=== PATIENT | female | born 1965 ===

== ENCOUNTER → 2018-06-19 10:17 | Outpatient (CLI) | payer BC, SELFPAY | PROVIDERS: PCP Physician Assistant | DX: Z78.0 Asymptomatic menopausal state (principal) | CPT/HCPCS: 36415; 83001 ==

== ENCOUNTER → 2018-12-19 12:00 | Outpatient (CLI) | payer BC, SELFPAY ==
--- NOTE | 2018-12-19 12:01 | DI.MG.S_ITS ---
BILATERAL DIGITAL SCREENING MAMMOGRAM 3D/2D WITH CAD: 12/19/2018 CLINICAL: Routine screening. Family history of breast cancer. Comparison is made to exams dated: 01/10/2017 mammogram, 02/05/2013 mammogram, and 09/06/2011 mammogram - [facility]. The tissue of both breasts is extremely dense, which lowers the sensitivity of mammography. Current study was also evaluated with a Computer Aided Detection (CAD) system. There are benign calcifications in both breasts. There also is a benign biopsy clip in the right breast. No significant masses, calcifications, or other findings are seen in either breast. There has been no significant interval change. IMPRESSION: There is no mammographic evidence of malignancy. A 1 year screening mammogram is recommended. This exam was interpreted at Station ID: [id number]. NOTE: For mammograms, a report in lay terms will be sent to the patient. Approximately 15% of breast malignancies will not be visualized mammographically. In the management of a palpable breast mass, a negative mammogram must not discourage biopsy of a clinically suspicious lesion. Electronically Signed By: Jeff hillman/eleonora:12/21/2018 11:57:11 letter sent: Normal Exam ACR BI-RADS Category 2: Benign Finding(s) 3342F
== END ==
PROVIDERS: PCP Physician Assistant
DX: Z12.31 Encounter for screening mammogram for malignant neoplasm of breast (principal); Z80.3 Family history of malignant neoplasm of breast
CPT/HCPCS: 77063; 77067

== ENCOUNTER → 2019-01-29 10:00 | Outpatient (CLI) | payer BC, SELFPAY ==
--- NOTE | 2019-01-29 10:03 | DI.CT.S_ITS ---
PROCEDURE: CT ABDOMEN PELVIS W CON INDICATIONS: Left upper quadrant pain TECHNIQUE: After the administration of oral and intravenous contrast, 5 mm thick sections acquired from the diaphragms to the symphysis. 5 mm thick coronal and sagittal reformats were performed. For radiation dose reduction, the following was used: automated exposure control, adjustment of mA and/or kV according to patient size. COMPARISON: [facility], CT, ABDOMEN/PELVIS WITH CONTRAST, 11/21/2017, 11:52. FINDINGS: Image quality: Excellent. ABDOMEN: Lung bases: No acute consolidation. Unchanged 3 mm nodule involving the anterior right lung base, presumably chronic granulomatous disease. Scattered scarring/atelectasis. Heart size is normal. Solid organs: Hepatic steatosis. Gallbladder negative. Biliary system is non-dilated. Pancreas enhances normally. Spleen is normal in size and enhancement. No adrenal nodules. Kidneys are normal in size and enhancement, without hydronephrosis. Peritoneum and bowel: Stomach, small bowel, and colon loops are normal in caliber and wall thickness. No free fluid or air. Large amount of disuse stool. Nodes and vessels: No retroperitoneal or mesenteric adenopathy. Aorta and inferior vena cava are normal in caliber. Miscellaneous: No ventral hernias. PELVIS: Genitourinary: Bladder wall thickness is normal. Miscellaneous: No inguinal hernias or adenopathy. Bones: No suspicious bony lesions. No vertebral body compression fractures. IMPRESSION: No specific visualized etiology of left upper quadrant pain. No acute process. Large amount of diffuse stool raising the possibility of constipation. Hepatic steatosis. Dictated by: Neville Larry M.D. on 01/29/2019 at 11:35 Approved by: Neville Larry M.D. on 01/29/2019 at 11:40
== END ==
PROVIDERS: PCP Physician Assistant; Visit Provider Physician Assistant
DX: R10.12 Left upper quadrant pain (principal); K76.0 Fatty (change of) liver, not elsewhere classified; R91.1 Solitary pulmonary nodule
CPT/HCPCS: 74177; Q9967

== ENCOUNTER → 2020-06-06 08:04 | Outpatient (CLI) | payer BC, SELFPAY ==
--- NOTE | 2020-06-06 | DI.RAD.S_ITS ---
PROCEDURE: XR CERVICAL SPINE 2V OR 3V INDICATIONS: Other cervical disc degeneration, unspecified cervical regio TECHNIQUE: 3 view(s) of the cervical spine were acquired. COMPARISON: None. FINDINGS: Bones: No fractures or dislocations to the T1 level. The lateral masses of C1 appear intact on the odontoid view. No suspicious bony lesions. There is mild degenerative disc disease at C5-6, and moderately severe such degeneration at C6-7. Facet osteoarthritis at C6-7 also appears moderately severe. Soft tissues: No prevertebral soft tissue swelling. IMPRESSION: No trauma found, no subluxation. Moderately severe degenerative disc disease and facet osteoarthritis at C6-7 to the good degree that spinal and foraminal stenosis likely is present at this level. Dictated by: Vaughn Oseguera M.D. on 06/06/2020 at 8:30 Approved by: Vaughn Oseguera M.D. on 06/06/2020 at 8:32
== END ==
PROVIDERS: PCP Internal Medicine; Referring Provider Internal Medicine; Visit Provider Internal Medicine
DX: M50.322 Other cervical disc degeneration at C5-C6 level (principal); M47.812 Spondylosis without myelopathy or radiculopathy, cervical region; R20.2 Paresthesia of skin; R20.0 Anesthesia of skin
CPT/HCPCS: 72040

== ENCOUNTER → 2020-06-23 13:06 | Outpatient (CLI) | payer BC, SELFPAY ==
[2020-06-23 15:00] LABS: TSH w/ Reflex to FT4 0.98 uIU/mL (0.47-4.68)
[2020-06-23 15:18] LABS: Vitamin B12 681 pg/mL (239-931)
== END ==
PROVIDERS: PCP Internal Medicine; Referring Provider Internal Medicine; Visit Provider Internal Medicine
DX: R20.2 Paresthesia of skin (principal)
CPT/HCPCS: 36415; 82607; 84443

== ENCOUNTER 2020-07-27 14:27 | Outpatient (CLI) | payer BC, SELFPAY | END 2020-07-28 07:34 | disposition home or self-care (01) | LOC: PHYS 14:28 | PROVIDERS: PCP Internal Medicine; Referring Provider Student in an Organized Health Care Education/Training Program; Visit Provider Student in an Organized Health Care Education/Training Program | DX: M50.10 Cervical disc disorder with radiculopathy, unspecified cervical region (principal) | CPT/HCPCS: 95886; 95911 ==

== ENCOUNTER → 2020-09-15 14:03 | Outpatient (CLI) | payer BC, SELFPAY ==
[2020-09-15 16:29] LABS: Bacteria Urine None Seen; RBC Urine None Seen (0-5/HPF)
[2020-09-15 17:10] LABS: Appearance Urine UA CLEAR; Bilirubin Urine UA NEGATIVE (NEGATIVE); Color Urine UA YELLOW; Glucose Urine UA NEGATIVE (Negative); Ketones Urine UA NEGATIVE (NEGATIVE); Leukocyte Esterase Urine UA 1+ (NEGATIVE); Nitrite Urine UA NEGATIVE (Negative); Occult Blood Urine UA NEGATIVE (Negative); Protein Urine UA NEGATIVE (Negative); Urobilinogen Urine UA 0.2 E.U./dL (0.2)
[2020-09-15 17:26] LABS: Culture Indicated Urine Specimen Cultured; WBC Urine 1-5/HPF (0-5/HPF); pH Urine UA 5.5 (4.5-8.0)
== END ==
PROVIDERS: PCP Internal Medicine; Referring Provider Obstetrics & Gynecology; Visit Provider Obstetrics & Gynecology
DX: R39.15 Urgency of urination (principal)
CPT/HCPCS: 81001; 87086

== ENCOUNTER → 2020-10-12 17:33 | Outpatient (CLI) | payer BC, SELFPAY ==
--- NOTE | 2020-10-12 | DI.RAD.S_ITS ---
PROCEDURE: XR KNEE RT 1TO2V COMPARISON: None. INDICATIONS: Acute Right Knee Pain FINDINGS: Two views of the right knee were performed. There is joint space narrowing of the lateral joint space with osteophytosis. No joint effusion is identified. A suprapatellar joint effusion is noted. IMPRESSION: 1. No fracture. 2. Degenerative changes with lateral joint space narrowing. 3. Suprapatellar joint effusion suggests internal derangement. Recommend MRI. Dictated by: Bowen Green M.D. on 10/13/2020 at 8:45 Approved by: Bowen Green M.D. on 10/13/2020 at 8:47
== END ==
PROVIDERS: PCP Internal Medicine; Referring Provider Internal Medicine; Visit Provider Internal Medicine
DX: M25.561 Pain in right knee (principal); M25.461 Effusion, right knee
CPT/HCPCS: 73560

== ENCOUNTER → 2020-12-12 17:28 | Outpatient (CLI) | payer BC, SELFPAY ==
--- NOTE | 2020-12-12 | DI.MG.S_ITS ---
BILATERAL DIGITAL SCREENING MAMMOGRAM 3D/2D WITH CAD: 12/12/2020 CLINICAL: Routine screening. Family history of breast cancer. Comparison is made to exams dated: 12/19/2018 mammogram, 01/10/2017 mammogram, and 02/05/2013 mammogram - [facility]. The tissue of both breasts is extremely dense, which lowers the sensitivity of mammography. Current study was also evaluated with a Computer Aided Detection (CAD) system. There are benign calcifications in both breasts. There also is a biopsy clip in the right breast. No significant masses, calcifications, or other findings are seen in either breast. There has been no significant interval change. IMPRESSION: BENIGN There is no mammographic evidence of malignancy. A 1 year screening mammogram is recommended. This exam was interpreted at Station ID: [id number]. NOTE: For mammograms, a report in lay terms will be sent to the patient. Approximately 15% of breast malignancies will not be visualized mammographically. In the management of a palpable breast mass, a negative mammogram must not discourage biopsy of a clinically suspicious lesion. Electronically Signed By: Brian montero/eleonora:12/13/2020 07:52:27 letter sent: Normal Exam ACR BI-RADS Category 2: Benign Finding(s) 3342F
== END ==
PROVIDERS: PCP Internal Medicine; Referring Provider Internal Medicine; Visit Provider Internal Medicine
DX: Z12.31 Encounter for screening mammogram for malignant neoplasm of breast (principal); Z80.3 Family history of malignant neoplasm of breast
CPT/HCPCS: 77063; 77067

== ENCOUNTER → 2021-02-05 10:41 | Outpatient (CLI) | payer BC, SELFPAY ==
[2021-02-05 11:31] LABS: COVID19 -Nasal RAPID Negative (Negative)
== END ==
PROVIDERS: PCP Internal Medicine; Visit Provider Obstetrics & Gynecology
DX: Z01.812 Encounter for preprocedural laboratory examination (principal); Z20.822 Contact with and (suspected) exposure to COVID-19
CPT/HCPCS: 87635

== ENCOUNTER 2021-02-06 06:25 | Inpatient (IN) | payer BC, SELFPAY ==
[2021-01-30 08:58] VITALS: BMI 23.6
[2021-02-06] VITALS (22 sets, daily range): BP systolic 86–130; BP diastolic 38–79; PULSE 57–85; RESP 8–18; TEMP 36.4–36.9; O2SAT 78–100; BMI 23.4
--- NOTE | 2021-02-06 | PATH_ITS ---
[facility] Accession Number: [id number] . 01 Material submitted: . body - FIBROIDS . 02 Diagnosis: Fibroids: Benign leiomyoma x2 (2.0 and 3.8 cm in greatest dimension). Negative for atypia or malignancy. MRV 02/12/2021 1100 Local . 02 Electronically signed: . Amanda Espinoza MD, Pathologist NPI- [id number] . 01 Gross description: . The specimen is received in formalin labeled fibroids and consists of two blackburn-white leiomyomata, measuring 2.0 x 2.0 x 1.5 cm and 3.8 x 2.2 x 2.0 cm. Sectioning reveals blackburn-white whorled cut surfaces with no areas of hemorrhage, necrosis or cystic degeneration. Gem Technician sections are submitted. . A1 - Gem Technician smaller leiomyoma. A2-A4 - Gem Technician larger leiomyoma. (EA:[id number]) /[facility] 02/07/2021 1535 Local . 02 Pathologist provided ICD-10: D25.9, R39.15, R10.2 . 02 CPT . 508861 Performed at: 01 [facility] [address], [place], [place] [id number] MD Brian Carvajal MD Phone: [phone] Performed at: 02 [facility] [address] [place], [place] [id number] MD Shellie Alexis MD Phone: [phone]
[2021-02-06] MEDS: ACETAMINOPHEN 325 MG TABLET 975 MG PO (07:21)
[2021-02-06] MEDS: LACTATED RINGERS 1,000 ML 100 ML IV ×3 (07:22→11:40)
--- NOTE | 2021-02-06 07:40 | PM.PREOP ---
Pre-operative Note COVID-19 COVID-19 status: Negative Result date/Date tested (Pos, Neg/Pending): 02/05/21 Interval Note History & Physical reviewed/Exam performed by Physician: Yes Changes to H&P: No H&P completed within 30 days and has changed as indicated here:: 02/05/21
[2021-02-06] MEDS: CEFAZOLIN 2 GM/100 ML FROZ.PIGGY IV (07:48)
[2021-02-06] MEDS: APREPITANT 40 MG CAPSULE PO (07:51)
[2021-02-06] MEDS: SODIUM CHLORIDE 0.9% 30 ML, VASOPRESSIN 20 UNIT INJ (08:19)
--- NOTE | 2021-02-06 08:21 | SUR.OPER ---
Supine on padded OR bed, head on pillow, arms secured on padded arm boards at <90 degrees abduction, legs uncrossed, safety belt at thigh, tape over blanket over lower legs. Gel pad placed under right upper leg between patient and urinary catheter tubing.
--- NOTE | 2021-02-06 09:43 | PM.GYNOP.1 ---
Operative Date/Time/Diagnoses Date of procedure: 02/06/21 Time of procedure: 09:43 Pre-op diagnosis: Uterine fibroids Pelvic pain Bladder issues secondary to fibroid Post-op diagnosis: same Procedure & Clinicians Procedure: Procedures Operation Date: 02/06/21 07:45 Actual Procedures Side Surgeon p Open Abdominal Multiple Myomectomy Gavi Mendoza MD Indications: Uterine fibroid Pelvic pain Bladder issues secondary to fibroids Surgeon: Gavi Mendoza Brazer Resistance: Luci Dee Anesthesia Type: General Operative Notes Findings: Five week size multi fibroid uterus Broad ligament fibroid measuring 4 cm x 2 cm Fundal subserosal fibroid measuring 2.5 cm x 2 cm Fundal subserosal fibroid measuring 0.5 x 0.5 cm Closure Type: primary Specimen(s): other (Three fibroids) Applied: catheter (Removed at the end of the case) Estimated blood loss (mL): 25 Blood products transfused: none Procedure in detail: The patient was taken to the operating room where she was placed in the dorsal supine position. After adequate general endotracheal anesthesia was achieved, she was prepped and draped in the usual sterile fashion. A Pfannenstiel skin incision was made 2 finger breaths above the pubic symphysis, 9 cm in length, and carried down to the underlying layer of fascia. The fascia was nicked in the midline and the incision extended bilaterally with the Eid scissors. The superior aspect of the fascial incision was grasped with Jesse clamps, elevated, and underlying rectus muscles dissected off sharply and bluntly. Attention was then turned to the inferior aspect of this incision which in a similar fashion was grasped with the Jesse clamps, elevated, and the underlying rectus muscles dissected off sharply and bluntly. The rectus muscles were in the midline. The peritoneum was grasped between 2 hemostats, and entered sharply with the Metzenbaum scissors. This incision was extended sharply superiorly and inferiorly with good visualization of the bladder. The bowel was packed away with moist lap sponges. The medium Harrison retractor system was placed into the incision. The uterus was grasped with Luci clamps on the cornua bilaterally. A solution of Pitressin, 10 units in 30 cc of injectable saline was injected over the 2 fundal fibroids. A bladder flap was created by making an incision in the broad ligament and extending it laterally to expose the broad ligament fibroid. Pitressin, 2 cc, was injected over the fibroid. Using the Bovie an incision was made over the fibroid. The fibroid was grasped with a single-tooth tenaculum and removed. The stalk of the fibroid was cauterized. Pressure was held for hemostasis. At the fundus of the uterus and incision was made over the larger fibroid with the Bovie. The fibroid was grasped with a single-tooth tenaculum and removed after the stalk was cauterized with the Bovie. There was a smaller fibroid just to the left of the larger 1 and this was grasped with an Allis clamp and removed using the Bovie. The smaller area was cauterized for hemostasis on the fundus of the uterus. The larger incision was closed deeper with 3-0 Vicryl with 3 simple interrupted sutures. The serosa was closed with 3-0 chromic with a baseball stitch. Pressure was held for hemostasis. Down near the bladder and broad ligament. Three 0 chromic was used to close the area in a running interlocking suture. Hemostasis was achieved and all 3 of the incisions. The pelvis was copiously irrigated with warm normal saline. Interceed was placed over the broad ligament and fundal incision. The tubes and ovaries were examined and were found to be normal. The Harrison retractor system was removed from the peritoneum/incision. The 3 lap sponges were removed from the abdomen. The peritoneum was closed with 2 0 Vicryl in a running fashion. Hemostasis was achieved on muscle using the Bovie. Fascia was closed using 0 Vicryl in a running fashion. The subcutaneous layer was irrigated with warm normal saline. Hemostasis was achieved using the Bovie. Five simple interrupted sutures with 3-0 Vicryl were placed to reapproximate the subcutaneous layer. 4-0 Biosyn was used to close the skin incision in a subcuticular fashion. Mastisol and Steri-Strips were placed. An Aquacel dressing was placed over the incision. Sponge, lap, and instrument counts were correct x2. The patient tolerated the procedure well, and was taken to PACU in stable condition. Complications: none Post-operative Condition: stable Disposition: PACU Plan for aftercare: To acute care after recovery
[2021-02-06] MEDS: ACETAMINOPHEN 325 MG TABLET 650 MG PO ×3 (11:44→23:42)
--- NOTE | 2021-02-06 13:15 | PC.ADMIT ---
[facility] Admission Note:Patient came to floor at 1055, Patient has some hypotension 130/50, P74. Patient is resting comfortably, complains of pain 4/10 in her abdomen that feels like bloating gas, wally pad is dry. 650mg Tylenol given per patient request. Patient was educated about splinting incision when getting up to move. Patient was up to the bathroom to urinate. Incision has an Aquacel dressing that is clean/dry/intact. Patient has scd's applied, call light is within reach, patient was educated about the use of call light. Bed is low and locked and bed alarm is active. The patient,Helen Skinner,55 y/o, was given written information regarding hospital policies, unit procedures and contact persons. Patient's smoking status: Former smoker. Vital Signs - 8 hr 02/06/21 07:24 02/06/21 09:32 02/06/21 09:34 Temperature 98.3 F 98.4 F Pulse Rate 70 84 74 Respiratory Rate 16 8 L 8 L Blood Pressure 112/67 87/38 L 86/44 L Pulse Oximetry 98 78 L 93 02/06/21 09:35 02/06/21 09:40 02/06/21 09:45 Temperature Pulse Rate 69 85 83 Respiratory Rate 8 L 10 L 10 L Blood Pressure 91/48 L 86/48 L 100/45 L Pulse Oximetry 96 98 99 02/06/21 09:50 02/06/21 09:55 02/06/21 10:00 Temperature Pulse Rate 73 66 68 Respiratory Rate 10 L 12 16 Blood Pressure 104/61 95/51 L 102/46 L Pulse Oximetry 98 99 100 02/06/21 10:05 02/06/21 10:15 02/06/21 10:25 Temperature Pulse Rate 62 68 66 Respiratory Rate 12 12 12 Blood Pressure 97/44 L 94/48 L 112/79 Pulse Oximetry 98 98 98 02/06/21 10:35 02/06/21 10:45 02/06/21 10:55 Temperature 98.1 F Pulse Rate 76 66 75 Respiratory Rate 18 16 15 Blood Pressure 97/50 L 92/50 L 130/58 L Pulse Oximetry 97 99 97 02/06/21 11:25 02/06/21 11:55 Temperature 98 F 98 F Pulse Rate 64 71 Respiratory Rate 15 15 Blood Pressure 99/56 L 101/67 Pulse Oximetry 97 97
[2021-02-06 15:31] LABS: Add Manual Diff / Slide Review NO; Basophils Absolute Auto 0 /uL (0-100); Basophils Percent Auto 0.1 % (0-2); Eosinophils Absolute Auto 0 /uL (0-450); Hematocrit 35.5 % (36-46); Hemoglobin 12.1 g/dL (12.0-16.0); Lymphocytes Absolute Auto 400 /uL (1100-4500); Lymphocytes Percent Auto 2.1 % (25-40); Mean Corpuscular HGB Conc 34.2 % (30-36); Mean Corpuscular Hemoglobin 29.9 PG (26-34); Mean Corpuscular Volume 87.5 fL (80-100); Monocytes Absolute Auto 400 /uL (0-900); Monocytes Percent Auto 2.5 % (3-14); Neutrophils Absolute Auto 16200 /uL (1500-7000); Neutrophils Percent Auto 95.3 % (50-75); Platelet Count 220 X10^3/uL (150-400); Red Blood Cell Count 4.06 X10^6/uL (4.0-5.2); Red Cell Distribution Width 13.2 % (11.6-14.8); White Blood Cell Count 16.9 X10^3/uL (4.5-11.0)
--- NOTE | 2021-02-06 16:43 | PC.NURSE ---
POST VOID BLADDER SCAN 18MLS,REPORTED TO ,NO NEW ORDERS
[2021-02-06] MEDS: KETOROLAC 30 MG/ML VIAL IV (20:36)
[2021-02-06] MEDS: DOCUSATE 250 MG CAPSULE PO (20:37)
[2021-02-06] MEDS: SODIUM CHLORIDE 0.9% FLUSH 10 ML IV (20:38)
[2021-02-07 01:12] VITALS: BP 89/53; PULSE 62; RESP 12; TEMP 36.8; O2SAT 98
[2021-02-07] MEDS: KETOROLAC 30 MG/ML VIAL IV (03:28)
[2021-02-07 04:25] VITALS: BP 102/59; PULSE 57; RESP 14; TEMP 36.5; O2SAT 97
[2021-02-07] MEDS: ACETAMINOPHEN 325 MG TABLET 650 MG PO ×3 (06:25→23:36)
[2021-02-07 06:36] LABS: Add Manual Diff / Slide Review NO; Basophils Absolute Auto 0 /uL (0-100); Basophils Percent Auto 0.1 % (0-2); Eosinophils Absolute Auto 0 /uL (0-450); Eosinophils Percent Auto 0.1 % (2-4); Hematocrit 31.5 % (36-46); Hemoglobin 10.8 g/dL (12.0-16.0); Lymphocytes Absolute Auto 1200 /uL (1100-4500); Mean Corpuscular HGB Conc 34.4 % (30-36); Mean Corpuscular Hemoglobin 30.3 PG (26-34); Mean Corpuscular Volume 88.2 fL (80-100); Monocytes Absolute Auto 1100 /uL (0-900); Monocytes Percent Auto 8.4 % (3-14); Neutrophils Absolute Auto 10900 /uL (1500-7000); Neutrophils Percent Auto 82.4 % (50-75); Platelet Count 193 X10^3/uL (150-400); Red Blood Cell Count 3.57 X10^6/uL (4.0-5.2); White Blood Cell Count 13.2 X10^3/uL (4.5-11.0)
[2021-02-07] MEDS: IBUPROFEN 600 MG TABLET PO ×2 (09:48→20:20)
[2021-02-07] MEDS: SODIUM CHLORIDE 0.9% FLUSH 10 ML IV ×2 (09:48→20:21)
[2021-02-07] MEDS: DOCUSATE 250 MG CAPSULE PO ×2 (09:48→20:20)
[2021-02-07 10:00] VITALS: BP 105/60; PULSE 56; RESP 15; TEMP 36.6; O2SAT 98
--- NOTE | 2021-02-07 11:01 | CM.DANOTE ---
Patient is a 55 year old female who was admitted on 02/06/21 for Exploratory Lap. Pt has [employer] OUT [employer] for insurance and her PCP is Dr. Rachel Chavarria. EMR was reviewed. Per CASE SUPERVISOR MD, pt tolerated expl lap with removal of fibroids well. Per RN, pt voiding and independent in room. SW met briefly bedside with pt and explained role and pt states she is really tired but seems to be managing pain fairly well. Pt lives at home with spouse in [facility] and is active and independent at baseline and spouse can assist some at d/c if needed. Pt does not anticipate any needs and preference is home with spouse once medically stable. Plan: SW to follow closely for likely plan of d/c home with spouse when medically stable and for any further identified discharge planning needs. CATHY Lepe Discharge Planning/Care Management CM Discharge Assessment Start: 02/07/21 11:00 Freq: Status: Active Protocol: Document 02/07/21 11:00 (Rec: 02/07/21 11:01 [id number]) Discharge Planning Assessment Assigned Distributor Sales Manager CATHY José DPOA/Assigned Designee Name none Advance Directives? No Advance Directives on File No History Provided By Patient,Medical Record Has Patient been admitted in last 30 No days? Prior Living Arrangements House Household Members spouse Type of transporation used prior to Drives own vehicle admit Independent with ADL's Yes Is patient alert and oriented? Yes Caregiver for Another No Barriers to Discharge No Discharge Plan Home Transportation Arrangement spouse Referrals Initiated None needed Review Status In Process Please Provide Date Initial DC 02/07/21 Assessment Was Performed Next Review Type Continued Stay Review Pre-Anesthesia Assessment Start: 01/30/21 08:58 Freq: Status: Complete Protocol: Document 01/30/21 08:58 CAB (Rec: 01/30/21 09:28 CAB [id number]) Pre-Anesthesia Assessment Patient Information Reviewed Via Phone Assessment Assessment Completed With Patient Comment COVID screen @ 02/05/21 Primary Care Provider Rachel Chavarria Seen Specialist in Last 12 Months Yes Specialist Seen Flow Floor Attendant,Orthopedist Primary Language Japanese Rustic Terrazzo Setter Required No Height 154.94 cm Weight 56.699 kg Body Mass Index (BMI) 23.6 Hearing Ability Normal Visual Impairment No Limitations Visual Assist None Dentition Type Teeth, Natural Present Barriers to Learning None Hx Anesthesia Reactions Yes: N/V after colonoscopy Hx Family Anesthesia Reaction No Hx Malignant Hyperthermia No Hx Blood Transfusions Yes: 1998 r/t bleeding ulcer Hx Blood Transfusion Reaction No Anesthesia Review Requested No Floating Operator No alcohol intake current Alcohol Intake Frequency Other: Occasional Smoking Status Former smoker Smoking cigarettes per day 2 how long ago did patient quit smoking Quit 2018 Substance Use Type does not use Pain Present Pain Reported Comment Pelvic cramping, 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 No Does patient have PAUL/SOB No Hx Sleep Apnea No Currently Taking a Beta Cynthia No Can You Climb a Flight of Stairs Without Yes SOB Hx Chest Pain No Hx SOB No Hx Syncope or Dizziness No Anti-Coagulant Therapy No Has a Harbor Engineer No Cardiac Testing No Hx Pacemaker/ICD No Pacemaker Rep Required? No Cardiac Clearance Received Not Applicable Diet Type At Home Regular dysphagia No Gastrointestinal Symptoms Constipation,Cramping Genitourinary Symptoms Abdominal Discomfort Bladder Pattern Frequency,Incontinent,Urgency Urinary Catheter Present No Hx Urinary Self Catheterization No Diabetes No Patient No Lactating No Hx Drug Resistant Organism No Presence of External or Internal Medical No Devices Have you had any close contact with No someone diagnosed with COVID-19? Marital Status Lives With spouse Prior Living Arrangements House Number of Floors (Floors) One Floor Support System Spouse Does the Patient Have Assistance After Yes Surgery Patient Discharge Plan Description Return Home Feels Safe in Current Environment Yes Been Physically Hurt or Threatened By a No Person in Current Environment Do you have thoughts of harming yourself None or others? Are you currently considering suicide? No Do you have a plan to hurt yourself or No Plan others? Do You Have Any Spiritual Beliefs That No May Affect Your HC Choices? Do You Have Any Cultural Practices That No May Affect Your HC Choices? Who Can We Speak to About Patient's Care Family, friends Identifying Code for Release of Patient Declines to issue Information Health Care Proxy/Next of Kin Trevon () Health Care Proxy Emergency Contact Name Trevon () Alayna ( daughter) Emergency Contact Phone Number Trevon: [phone] Alayna: [phone] Advance Directives? No Power of Director Of Product Management No PAC Instructions Do not shave/clip surgical site,Medications to take/avoid ,No ETOH/petroleum product on skin DOS,NPO,Sturdy shoes/ comfortable clothes,Do not bring valuables and remove jewelry
[2021-02-07 12:00] VITALS: BP 103/71; PULSE 55; RESP 15; TEMP 36.4; O2SAT 97
--- NOTE | 2021-02-07 12:40 | PC.NURSE ---
Patient sitting up in bed comfortably, denies complaint at this time. Tolerating lunch. Standby assistance, with call light within reach.
[2021-02-07 15:45] VITALS: BP 105/62; PULSE 65; RESP 18; TEMP 36.8; O2SAT 98
--- NOTE | 2021-02-07 17:28 | PM.PNPO.1 ---
Subjective Subjective Date Patient Seen: 02/07/21 Time Patient Seen: 17:28 Interval history: Patient is a 55-year-old postop day # 1 from open multiple myomectomy. She has been able to void without the catheter. She is tolerating a diet. She has not ambulated much. She has significant pain when she is standing or walking. Exam Vital Signs (past 8 hours): - 02/07/21 10:00 02/07/21 12:00 02/07/21 15:45 Temperature 98 F 97.6 F 98.3 F Pulse Rate 56 L 55 L 65 Respiratory Rate 15 15 18 Blood Pressure 105/60 103/71 105/62 Pulse Oximetry 98 97 98 Oxygen Delivery Method Room Air Oxygen Flow Rate 0 Narrative Exam Narrative: Generally: Patient sitting up on the edge of the bed, no acute distress Lungs: Clear to auscultation bilaterally Cardiovascular: Regular rate and rhythm Abdomen: Soft and flat. Good bowel sounds in all 4 quadrants. Incision: Clean dry and intact with Aquacel dressing Extremities: Negative Homans Objective Labs Result Diagrams: 02/07/21 05:31 Labs: Laboratory Results - last 24 hr 02/07/21 05:31 WBC 13.2 H RBC 3.57 L Hgb 10.8 L Hct 31.5 L MCV 88.2 MCH 30.3 MCHC 34.4 RDW 13.0 Plt Count 193 Neut % (Auto) 82.4 H Lymph % (Auto) 9.0 L Toole % (Auto) 8.4 Eos % (Auto) 0.1 L Baso % (Auto) 0.1 Neut # (Auto) 80228 H Lymph # (Auto) 1200 Toole # (Auto) 1100 H Eos # (Auto) 0 Baso # (Auto) 0 PFSH Medical History (Updated 01/30/21 @ 09:14 by Denise Latham RN) Acid reflux Arthritis Eczema Fatty liver Gastric ulcer (~1998) Hemorrhoid (~2003) Human papilloma virus (~1993) Surgical History (Updated 01/30/21 @ 09:28 by Denise Latham RN) Anesthesia History of colonoscopy History of surgery (~2008) Hx of tonsillectomy Status post hemorrhoidectomy (~2003) Family History Child Age: 31 Thyroid nodule Mother Age: 84 Cancer Heart disease Stroke Social History household members: spouse Smoking Status: Former smoker alcohol intake: current Assessment & Plan Post-op Postoperative Procedures: Procedures Operation Date: 02/06/21 07:45 Actual Procedures Side Surgeon p Open Abdominal Multiple Myomectomy Gavi Mendoza MD Postoperative day: 1 Postoperative status: marginal pain control Postoperative status narrative: Doing well except for pain control when standing or walking Postoperative plan: ambulate Time Spent With Patient Time with patient: 15-24 minutes Quality VTE Deep Vein Thrombosis/Pulmonary Embolism Present on Admission: No
[2021-02-07 19:47] VITALS: BP 100/58; PULSE 65; RESP 18; TEMP 36.7
[2021-02-08] VITALS: BP 116/74; PULSE 56; RESP 18; TEMP 36.8; O2SAT 95
[2021-02-08] MEDS: IBUPROFEN 600 MG TABLET PO ×2 (03:17→08:32)
[2021-02-08] MEDS: ACETAMINOPHEN 325 MG TABLET 650 MG PO (06:37)
[2021-02-08] MEDS: DOCUSATE 250 MG CAPSULE PO (08:32)
[2021-02-08 09:00] VITALS: BP 120/70; PULSE 66; RESP 16; TEMP 36.2; O2SAT 98
[2021-02-08] MEDS: BENZOCAINE/MENTHOL 1 LOZ PKT 1 EACH PO (09:24)
--- NOTE | 2021-02-08 09:40 | PC.NURSE ---
Discharge instructions and home care handouts reviewed with patient, she and her state understanding. Educated on splinting, deep breathing and coughing, and incentive spirometer use. Aquacel dressing intact. Patient to follow up in Dr. Mendoza's office. Instructed to call MD with questions or concerns. Escorted out with all her belongings with her via wheelchair.
--- NOTE | 2021-02-08 12:19 | CM.DPC ---
DCP: continued: case received and discussed in Team Rounds. EMR reviewed. DC order noted. P: home today
--- NOTE | 2021-02-16 03:55 | PM.DS.1 ---
History of Present Illness History of Present Illness Date Patient Seen: 02/08/21 Time Patient Seen: 08:15 Chief complaint: Exploratory Laparotomy Narrative: Patient is a 55-year-old who presented on February 06, 2021 for a scheduled open multiple myomectomy. She underwent this procedure without complication. She is tolerating a diet. No nausea or vomiting. Pain is well controlled. She is ambulating independently. She has voided without the catheter. Discharge Providers Provider Date of admission: 02/06/21 06:25 Discharge Date: 02/08/21 Primary care physician: Rachel Chavarria MD Discharge provider: Gavi Mendoza MD Summary Hospital Course Discharge Diagnosis: Pelvic pain Fibroid uterus Open multiple myomectomy Hospital Course: Patient is a 55-year-old who presented on February 06, 2021 for a scheduled open multiple myomectomy due to pelvic pain and bladder symptoms. She underwent this procedure without complication. On postop day # 1 her Benz catheter was removed and she was able to void without the catheter. She tolerated a diet on postop day # 0. On postop day # 2 she is ambulating independently. Pain is well controlled. No nausea or vomiting. She is discharged home. Status at Discharge Cognitive/behavioral status at discharge: oriented Functional status at discharge: independent ambulation Overall status at discharge: patient is progressing back to baseline Time Spent with Patient Time spent: Less than 30 minutes Exam Vital Signs (past 8 hours): Oxygen Delivery Method Room Air Oxygen Flow Rate 0 Narrative Exam Narrative: Generally: Patient is sitting up in bed, no acute distress Lungs: Clear to auscultation bilaterally Cardiovascular: Regular rate and rhythm Abdomen: Soft and flat. Good bowel sounds in all 4 quadrants Incision: Clean dry and intact with Aquacel dressing Extremities: No edema, negative Homans Objective Labs Result Diagrams: 02/07/21 05:31 [facility] Medical History (Updated 02/14/21 @ 14:14 by Gavi Mendoza MD) Acid reflux Arthritis Eczema Fatty liver Gastric ulcer (~1998) Hemorrhoid (~2003) Human papilloma virus (~1993) Surgical History (Updated 01/30/21 @ 09:28 by Denise Latham RN) Anesthesia History of colonoscopy History of surgery (~2008) Hx of tonsillectomy Status post hemorrhoidectomy (~2003) Family History Child Age: 31 Thyroid nodule Mother Age: 84 Cancer Heart disease Stroke Social History household members: spouse Smoking Status: Former smoker alcohol intake: current Discharge Assessment & Plan Assessment and Plan Assessment: Postop day # 2 status post open multiple myomectomy, doing very well Plan of Treatment: Discharge to home Follow-up in 1 week for Aquacel dressing removal Patient to call with fever, chills, redness or drainage around the incision, or bleeding vaginally more than spotting Discharge Plan Discharge Plan Patient Disposition: Home Provider Discharge Comment: Call with fever, chills, redness or drainage around the incision, or bleeding vaginally more than spotting Tylenol 650 mg every 6 hours Ibuprofen 600 mg every 6 hours Discharge orders & Medications Prescriptions: New oxycodone 5 mg tablet 5 mg PO Q4H PRN (Reason: pain) Qty: 20 RF: 0 docusate sodium 250 mg capsule 250 mg PO BID Qty: 20 RF: 3 No Action No Known Home Medications RF: 0 Follow up/Referrals: Gavi Mendoza MD [Physician] - 1 Week (Aquacel dressing removal) Rachel Chavarria MD [Primary Care Provider] - Diet/Activity/Treatments Diet: Regular Activity: No heavy lifting Skin/Wound/Dressing Care Report to your healthcare provider any signs of infection, such as:: chills, fever, increased pain, unusual drainage and unusual redness Dressing: Do not remove Visit Report/Discharge Packet Instructions: Myomectomy -- Open Surgery, DI for Myomectomy, DI for Prescription Opioid Use, Oxycodone Stand Alone Forms: Surgery Discharge Discharge Data Primary Care Provider: Rachel Chavarria Quality VTE Deep Vein Thrombosis/Pulmonary Embolism Present on Admission: No
== END 2021-02-08 09:43 | disposition home or self-care (01) | DRG 743 ==
PROVIDERS: Admitting Provider Obstetrics & Gynecology; PCP Internal Medicine; Referring Provider Internal Medicine; Visit Provider Obstetrics & Gynecology
PROC: 0WJJ0ZZ Inspection of Pelvic Cavity, Open Approach (ICD-10-PCS; CPT 49000; principal; 2021-02-06 07:45)
DX: D25.2 Subserosal leiomyoma of uterus (principal); D25.1 Intramural leiomyoma of uterus; K21.9 Gastro-esophageal reflux disease without esophagitis; Z20.822 Contact with and (suspected) exposure to COVID-19
CPT/HCPCS: 36415; 58140; 85025; 87635; J0690; J1100; J1885; J2250; J2405; J2704; J3010; J8501

== ENCOUNTER → 2022-07-12 11:01 | Outpatient (CLI) | payer BC, SELFPAY ==
[2022-07-12 08:50] VITALS: BMI 23.4
[2022-07-13 06:56] LABS: Candida species Negative (Negative); Gardnerella vaginalis Positive (Negative); Trichomoas vaginalis Negative (Negative)
== END ==
PROVIDERS: PCP Internal Medicine; Visit Provider Specialist
DX: N89.8 Other specified noninflammatory disorders of vagina (principal)
CPT/HCPCS: 87480; 87510; 87660

== ENCOUNTER → 2022-07-26 12:13 | Outpatient (CLI) | payer BC, SELFPAY ==
[2022-07-12 08:50] VITALS: BMI 23.4
--- NOTE | 2022-07-26 12:14 | DI.US.S_ITS ---
PROCEDURE: US PELVIC COMPLETE INDICATIONS: Pain, postmenopausal, history of fibroidectomy. TECHNIQUE: Real-time scanning was performed of the pelvic organs, with image documentation. Additional endovaginal scanning was necessary due to incomplete visualization of the adnexal and endometrial structures by transabdominal scanning. COMPARISON: [facility], , US PELVIC COMPLETE, 07/02/2021, 14:34. [facility], , US PELVIC COMPLETE, 12/12/2020, 17:05. FINDINGS: Uterus: Uterus is anteverted and normal in size at 3.3 4.0 x 6.5 cm. The myometrium is mildly heterogeneous. The endometrium measures 1.8 mm combined thickness. At the cervix there is a ovoid fluid collection measuring 1.9 x 1.0 x 1.7 cm, with an internal solid nodule without identifiable internal vascularity measuring 8 x 8 x 10 mm. Ovaries: The right ovary could not be located. The left ovary measures 1.1 x 1.9 x 1.0 cm, with a calculated ovarian volume of 1.1 cc. The left ovary has a normal sonographic appearance considering postmenopausal status. No adnexal masses are seen. Other: No pathologic free abdominal or pelvic fluid. IMPRESSION: Normal endometrial lining thickness. Nonvisualization of the right ovary. Cystic structure at the cervix, either within or immediately adjacent to the cervical canal, containing a solid nodule that measures 8 x 8 x 10 mm. Etiology of this solid component is indeterminate. Excisional biopsy may be warranted. We strive to produce accurate, complete, and clear reports of imaging services. To assist us in improving patient care, this report was composed using standard report templates and voice recognition software. Therefore, it may contain abnormal punctuation, insertions and/or omissions. Occasional wrong-word or sound-alike substitutions may occur. Though we review the report and make efforts to correct it, we do recommend that the report be read carefully in proper context to recognize any text inaccuracies. Dictated by: Vaughn Oseguera M.D. on 07/26/2022 at 14:26 Approved by: Vaughn Oseguera M.D. on 07/26/2022 at 14:33
== END ==
PROVIDERS: PCP Internal Medicine; Referring Provider Specialist; Visit Provider Specialist
DX: N88.8 Other specified noninflammatory disorders of cervix uteri (principal); R10.2 Pelvic and perineal pain; Z78.0 Asymptomatic menopausal state
CPT/HCPCS: 76830; 76856; 93976

== ENCOUNTER → 2022-08-23 13:40 | Outpatient (CLI) | payer BC, SELFPAY ==
[2022-07-12 08:50] VITALS: BMI 23.4
[2022-08-23 15:49] LABS: COVID19 -Nasal RAPID Negative (Negative)
== END ==
PROVIDERS: PCP Internal Medicine; Visit Provider Obstetrics & Gynecology
DX: Z01.812 Encounter for preprocedural laboratory examination (principal); Z20.822 Contact with and (suspected) exposure to COVID-19
CPT/HCPCS: 87635

== ENCOUNTER 2022-08-26 06:40 | Day surgery (SDC) | payer BC, SELFPAY ==
[2022-07-12 08:50] VITALS: BMI 23.4
[2022-08-21 14:57] VITALS: BMI 23.6
[2022-08-26] VITALS (7 sets, daily range): BP systolic 91–114; BP diastolic 53–75; PULSE 52–64; RESP 10–18; TEMP 36.1–36.6; O2SAT 96–100; BMI 23.2
[2022-08-26] MEDS: LACTATED RINGERS 1,000 ML 42 ML IV (07:26)
--- NOTE | 2022-08-26 07:58 | PM.HP.1 ---
History of Present Illness History of Present Illness Date Patient Seen: 08/26/22 Time Patient Seen: 07:58 Chief complaint: D&C HYSTEROSCOPY Narrative: Patient is a 56-year-old who has a mass in the cervix/lower uterine segment on ultrasound. She is here for a D&C hysteroscopy with biopsy of the mass/drainage/excision of the mass. Patient History Medical History Acid reflux Arthritis Eczema Fatty liver Gastric ulcer (~1998) Hemorrhoid (~2003) Human papilloma virus (~1993) Surgical History Anesthesia History of colonoscopy History of surgery (~2008) Hx of myomectomy (02/06/21) Hx of tonsillectomy Status post hemorrhoidectomy (~2003) Family & Social History Family History Child Age: 32 Thyroid nodule Mother Age: 85 Cancer Heart disease Stroke Social History: household members spouse Tobacco & Substance use: Smoking Status Former smoker alcohol intake current alcohol intake frequency a few times a month Substance Use Type does not use Meds Home Medications and Allergies Home Medications Medication Instructions Recorded Confirmed Type estradiol 0.01% (0.1 mg/gram) 1 g vaginal 2XW Vaginal atrophy 07/12/22 08/21/22 Rx vaginal cream #42.5 grams Allergies Allergy/AdvReac Type Severity Reaction Status Date / Time antibiotics AdvReac Severe Any Uncoded 08/26/22 07:12 antibiotics causes constipation Exam Vital Signs (past 8 hours): - 08/26/22 07:14 Temperature 97.9 F Pulse Rate 64 Respiratory Rate 16 Blood Pressure 114/70 Pulse Oximetry 97 Oxygen Delivery Method Room Air Oxygen Delivery Method Room Air Narrative Exam Narrative: HEENT: No thyromegaly, no anterior cervical or supraclavicular lymphadenopathy. Lungs:Clear to auscultation bilaterally, no wheezes. Cardiovascular: Regular rate and rhythm, no murmurs, rubs, or gallops. Abdomen: Well-healed scars. No hepatosplenomegaly. No masses palpable. External genitalia: Normal Vagina: Normal Cervix: Normal Bimanual exam: 7 Week size anteverted uterus. Mobile. No adnexal masses or tenderness Extremities: No edema Assessment & Plan Assessment & Plan narrative: Assessment: 56-year-old 6 para 1 with a cervical/lower uterine segment mass on ultrasound Plan: D&C hysteroscopy with biopsy of the mass/drainage of a cyst/excision of the mass The risks, benefits, and alternatives to the procedure were explained to the patient. The risks including bleeding and infection. She understands these risks and agrees to proceed. A full par Q was held and consent form was signed. COVID-19 COVID-19 status: Negative Result date/Date tested (Pos, Neg/Pending): 08/23/22 Time Spent With Patient Time with patient: less than 30 minutes Critical Care time: I spent a total of [] minutes of critical care time on this patient's care today; this time is exclusive of procedural time.
--- NOTE | 2022-08-26 08:01 | PM.PREOP ---
Pre-operative Note COVID-19 COVID-19 status: Negative Result date/Date tested (Pos, Neg/Pending): 08/23/22 Criteria for continued procedure: Non-surgical alternatives not available or appropriate per current SOC Interval Note History & Physical reviewed/Exam performed by Physician: Yes Changes to H&P: No H&P completed within 30 days and has changed as indicated here:: 08/26/22
--- NOTE | 2022-08-26 08:28 | SUR.OPER ---
Lithotomy on padded OR bed, head on pillow, arms secured on padded arm boards at <90 degrees abduction. Legs secured in padded yellow fins stirrups.
--- NOTE | 2022-08-26 08:46 | P.OP_ITS ---
Operative Date/Time/Diagnoses Date of procedure: 08/26/22 Time of procedure: 08:46 Pre-op diagnosis: Cervical mass on ultrasound Post-op diagnosis: same Procedure & Clinicians Procedure: Procedures Operation Date: 08/26/22 07:45 Actual Procedure Side Surgeon p D&C Hysteroscopy aspiration of nabothian cyst Gavi Mendoza MD Indications: Cervical mass on ultrasound Surgeon: Gavi Mendoza Anesthesia Type: General (LMA) Operative Notes Findings: 6 week size anteverted uterus Nabothian cyst at the 7:00 a.m. and 4:00 a.m. positions around the cervix Both fallopian tube ostia observed Thin endometrial lining No mass visible in the uterus or cervix Closure Type: not applicable Specimen(s): none Estimated blood loss (mL): 3 Procedure in detail: After informed consent was obtained, the patient was taken to the operating room where she was placed in the dorsal supine position. After adequate LMA general anesthesia was achieved, she was placed in the dorsal lithotomy position, and prepped and draped in the usual sterile fashion. A time-out was performed. A bivalve speculum was placed into the vagina and the anterior lip of the cervix was grasped with a single-tooth tenaculum. The cervical os was sequentially dilated until the hysteroscope could pass easily into the endometrial cavity. Initial inspection with the hysteroscope revealed both fallopian tube ostia. There was a thin endometrial lining. The hysteroscope was removed from the uter us. There were 2 nabothian cyst seen on the cervix 1 at 4:00 a.m. and 1 at 7:00 a.m.. Using an 18 gauge spinal needle attached to a 10 cc syringe, the nabothian cysts were opened and drained. There was mucoid material. The single-tooth tenaculum was removed from the anterior lip of the cervix. The bivalve speculum was removed from the vagina. Sponge, lap, and instrument counts were correct x2. The patient tolerated the procedure well, and was taken to PACU in stable condition. Complications: none Post-operative Condition: stable Disposition: PACU Plan for aftercare: Home after recovery
== END 2022-08-26 09:47 | disposition home or self-care (01) ==
PROVIDERS: PCP Internal Medicine; Referring Provider Obstetrics & Gynecology; Visit Provider Obstetrics & Gynecology
PROC: 0UDB8ZZ Extraction of Endometrium, Via Natural or Artificial Opening Endoscopic (ICD-10-PCS; CPT 58558; principal; 2022-08-26 07:45)
DX: N88.8 Other specified noninflammatory disorders of cervix uteri (principal)
CPT/HCPCS: 58558; J1100; J2405; J2704; J3010

== ENCOUNTER → 2022-10-30 16:18 | Outpatient (CLI) | payer BC, SELFPAY ==
[2022-07-12 08:50] VITALS: BMI 23.4
[2022-11-01 14:09] LABS: Candida species Negative (Negative); Gardnerella vaginalis Positive (Negative); Trichomoas vaginalis Negative (Negative)
== END ==
PROVIDERS: PCP Internal Medicine; Visit Provider Obstetrics & Gynecology
DX: N89.8 Other specified noninflammatory disorders of vagina (principal)
CPT/HCPCS: 87480; 87510; 87660

== ENCOUNTER → 2023-02-14 14:13 | Outpatient (CLI) | payer BC, SELFPAY ==
[2022-07-12 08:50] VITALS: BMI 23.4
--- NOTE | 2023-02-14 14:14 | DI.US.S_ITS ---
PROCEDURE: US PELVIC COMPLETE INDICATIONS: FOLLOW UP FIBROIDS TECHNIQUE: Real-time scanning was performed of the pelvic organs, with image documentation. Additional endovaginal scanning was necessary due to incomplete visualization of the adnexal and endometrial structures by transabdominal scanning. COMPARISON: [facility], , US PELVIC COMPLETE, 07/26/2022, 12:35. FINDINGS: Uterus: Uterus is anteverted and normal in size at 6.3 x 2.8 x 5.1 cm. The myometrium is homogeneous. The endometrium measures 2 mm combined thickness. As identified on prior exam, there is a cervical mass appearing to contain both cystic and solid components. The entire structure measures 1.0 x 1.4 cm with the more solid-appearing component measuring 0.8 x 1.0 cm. This is compared to 1.0 by 1.7 cm and 0.8 x 1.0 cm respectively. Ovaries: The right ovary measures 1.8 x 1.7 x 1.8 cm, with a calculated ovarian volume of 3.0 cc. The left ovary visualized. Other: No pathologic free abdominal or pelvic fluid. IMPRESSION: Mass with both solid and cystic components in the cervix appearing slightly decreased compared to prior exam. This could represent a degenerating fibroid. However, etiology such as malignancy cannot be definitively excluded and follow-up imaging or biopsy is recommended as indicated. We strive to produce accurate, complete, and clear reports of imaging services. To assist us in improving patient care, this report was composed using standard report templates and voice recognition software. Therefore, it may contain abnormal punctuation, insertions and/or omissions. Occasional wrong-word or sound-alike substitutions may occur. Though we review the report and make efforts to correct it, we do recommend that the report be read carefully in proper context to recognize any text inaccuracies. Dictated by: Fabiola Mckeon M.D. on 02/14/2023 at 16:20 Approved by: Fabiola Mckeon M.D. on 02/14/2023 at 16:30
== END ==
PROVIDERS: PCP Internal Medicine; Referring Provider Obstetrics & Gynecology; Visit Provider Obstetrics & Gynecology
DX: D21.9 Benign neoplasm of connective and other soft tissue, unspecified (principal); N88.9 Noninflammatory disorder of cervix uteri, unspecified
CPT/HCPCS: 76830; 76856; 93976

== ENCOUNTER → 2023-02-27 16:13 | Outpatient (CLI) | payer BC, SELFPAY ==
[2022-07-12 08:50] VITALS: BMI 23.4
[2023-03-01 12:08] LABS: Candida species Negative (Negative); Gardnerella vaginalis Positive (Negative); Trichomoas vaginalis Negative (Negative)
== END ==
PROVIDERS: PCP Internal Medicine; Visit Provider Obstetrics & Gynecology
DX: N89.8 Other specified noninflammatory disorders of vagina (principal)
CPT/HCPCS: 87480; 87510; 87660

== ENCOUNTER → 2023-04-04 09:37 | Outpatient (CLI) | payer BC, SELFPAY ==
[2022-07-12 08:50] VITALS: BMI 23.4
[2023-04-05 15:35] LABS: Candida species Negative (Negative); Gardnerella vaginalis Positive (Negative); Trichomoas vaginalis Negative (Negative)
== END ==
PROVIDERS: PCP Internal Medicine; Visit Provider Obstetrics & Gynecology
DX: N76.0 Acute vaginitis (principal)
CPT/HCPCS: 87070; 87205; 87480; 87510; 87660

== ENCOUNTER → 2023-06-28 11:00 | Outpatient (CLI) | payer BC, SELFPAY ==
[2023-04-04 09:42] VITALS: BMI 23.4
[2023-06-28 16:23] LABS: Estradiol, Total 17.1 pg/mL
== END ==
PROVIDERS: PCP Internal Medicine; Referring Provider Obstetrics & Gynecology; Visit Provider Obstetrics & Gynecology
DX: N95.1 Menopausal and female climacteric states (principal)
CPT/HCPCS: 36415; 82670

== ENCOUNTER → 2024-03-26 09:59 | Outpatient (CLI) | payer BC, SELFPAY ==
[2023-04-04 09:42] VITALS: BMI 23.4
--- NOTE | 2024-03-26 | DI.MG.S_ITS ---
BILATERAL DIGITAL SCREENING MAMMOGRAM 3D/2D WITH CAD: 03/26/2024 CLINICAL: Routine screening. Family history of breast cancer. Comparison is made to exams dated: 12/12/2020 mammogram, 12/19/2018 mammogram, and 01/10/2017 mammogram - [facility]. Both breasts are heterogeneously dense, which may obscure small masses (category c / 51-75% glandular tissue). Current study was also evaluated with a Computer Aided Detection (CAD) system. There are benign calcifications in both breasts. There also is a biopsy clip in the right breast. No significant masses, calcifications, or other findings are seen in either breast. There has been no significant interval change. IMPRESSION: BENIGN There is no mammographic evidence of malignancy. A 1 year screening mammogram is recommended. Based on the Tyrer Cuzick model (a risk assessment model) the patient's lifetime risk is 9.1% and her 10 year risk is 3.2%. According to the ACR, ACS, and NCCN guidelines, an annual breast MRI exam along with mammogram is recommended if the patient's lifetime risk is 20% or greater. This exam was interpreted at Station ID: [id number]. NOTE: For mammograms, a report in lay terms will be sent to the patient. Approximately 15% of breast malignancies will not be visualized mammographically. In the management of a palpable breast mass, a negative mammogram must not discourage biopsy of a clinically suspicious lesion. Electronically Signed By: Sherly feliciano/eleonora:03/26/2024 15:43:32 letter sent: Normal Exam ACR BI-RADS Category 2: Benign Finding(s) [id number]
--- NOTE | 2024-03-26 13:14 | DI.RAD.S_ITS ---
PROCEDURE: XR KNEE RT 4V INDICATIONS: KNEE PAIN TECHNIQUE: 3 views of the knee were acquired. COMPARISON: None. FINDINGS: Bones: No fractures or dislocations. No suspicious bony lesions. Moderate right knee tricompartmental osteoarthritic degenerative change with osseous hypertrophy and joint space narrowing. Soft tissues: No joint effusion. No suspicious soft tissue calcifications. IMPRESSION: No acute bony abnormality or significant effusion. Moderate tricompartmental osteoarthritis. Dictated by: Tana Connors MD, PhD on 03/26/2024 at 14:10 Approved by: Tana Connors MD, PhD on 03/26/2024 at 14:11
== END ==
PROVIDERS: PCP Internal Medicine; Referring Provider Physician Assistant; Visit Provider Internal Medicine
DX: Z12.31 Encounter for screening mammogram for malignant neoplasm of breast (principal); Z80.3 Family history of malignant neoplasm of breast; R92.333 Mammographic heterogeneous density, bilateral breasts; M17.11 Unilateral primary osteoarthritis, right knee; M25.561 Pain in right knee; G89.29 Other chronic pain
CPT/HCPCS: 73564; 77063; 77067

== ENCOUNTER → 2024-06-22 18:46 | Outpatient (CLI) | payer BC, SELFPAY ==
[2023-04-04 09:42] VITALS: BMI 23.4
--- NOTE | 2024-06-22 18:48 | DI.MRI.S_ITS ---
PROCEDURE: MR KNEE RT WO CON INDICATIONS: PAIN IN RIGHT KNEE,CHRONIC PAIN TECHNIQUE: Noncontrast sagittal PD fast spin echo and T2 fast spin echo with fat saturation, sagittal 3-D FLASH with fat saturation; coronal T1 spin echo and PD fast spin echo with fat saturation, and axial PD fast spin echo with fat saturation through the knee. COMPARISON: None. FINDINGS: Image quality: Somewhat limited evaluation given patient motion. Menisci: The medial meniscus is intact. In the lateral meniscus, there is a horizontal oblique tear of the posterior horn. There is additional complete maceration of the lateral meniscus body, extending into the anterior horn. There is marked extrusion of the residual lateral meniscus body. Cruciate ligaments: The anterior and posterior cruciate ligaments appear intact. Medial structures: The medial collateral ligament appears intact. Mild tenosynovitis of the distal semimembranosus tendon. Lateral structures: Mild tendinosis of the distal biceps femoris tendon. Partial-thickness tear of the proximal fibular collateral ligament. The popliteus tendon and muscle are unremarkable. The iliotibial band is intact. Anterior structures: The quadriceps and patellar tendons appear intact. Lateral tilt of the patella. Patellofemoral ligaments are intact. Bones and cartilage: Mild chondrosis of the patellofemoral compartment, with mild multilevel focal chondral irregularity of the patella. Mild chondral loss in the medial trochlea. In the medial compartment, there is mild chondral thinning in the weight-bearing portion of the medial femoral condyle. In the lateral compartment, there is high-grade chondral thinning in the weight-bearing portion of the posterior weight-bearing portion of the lateral femoral condyle. Mild subchondral marrow edema in the tibial plateau and in the posterior weight-bearing portion of the lateral femoral condyle, degenerative. Small T2 hyperintensity at the tibial eminence, nonspecific and may represent a small subchondral cystic changes. No acute fracture. Joint space: Moderate knee effusion with multiple small intra-articular body. Ganglion cyst posterior to the distal PCL, measuring 2.7 cm. IMPRESSION: 1. Limited evaluation given patient motion. 2. Extensive tear of the lateral meniscus. 3. Mild tenosynovitis of the distal semimembranosus tendon. 4. Partial-thickness tear of the proximal fibular collateral ligament. Somewhat limited evaluation given patient motion. 5. Moderate, lateral compartment predominant chondrosis with mild subchondral marrow edema. 6. Moderate knee effusion with multiple small intra-articular bodies. Dictated by: Nicci Oglesby M.D. on 06/23/2024 at 9:19 Approved by: Nicci Oglesby M.D. on 06/23/2024 at 9:33
== END ==
LOC: MRI 18:47
PROVIDERS: PCP Internal Medicine; Referring Provider Family Medicine; Visit Provider Family Medicine
DX: S83.281A Other tear of lateral meniscus, current injury, right knee, initial encounter (principal); S83.421A Sprain of lateral collateral ligament of right knee, initial encounter; M22.41 Chondromalacia patellae, right knee; M25.461 Effusion, right knee; M65.9 Synovitis and tenosynovitis, unspecified; M25.561 Pain in right knee; G89.29 Other chronic pain
CPT/HCPCS: 73721

== ENCOUNTER → 2024-06-25 13:12 | Outpatient (CLI) | payer BC, SELFPAY ==
[2023-04-04 09:42] VITALS: BMI 23.4
[2024-06-25 13:46] LABS: Hematocrit 38.9 % (36-46); Hemoglobin 13.2 g/dL (12.0-16.0); Mean Corpuscular HGB Conc 33.9 % (30-36); Mean Corpuscular Hemoglobin 29.9 PG (26-34); Platelet Count 277 X10^3/uL (150-400); Red Blood Cell Count 4.43 X10^6/uL (4.0-5.2); Red Cell Distribution Width 12.9 % (11.6-14.8); White Blood Cell Count 5.9 X10^3/uL (4.5-11.0)
[2024-06-25 14:18] LABS: Alanine Aminotransferase 18 IU/L (<35); Albumin 4.4 g/dL (3.5-5.0); Albumin Globulin Ratio 1.6 (1.0-2.8); Alkaline Phosphatase 58 U/L (38-126); Aspartate Aminotransferase 24 IU/L (14-36); BUN Creatinine Ratio 20.3 (6-22); Bilirubin Total 0.6 mg/dL (0.2-1.3); Bilirubin Unconjugated 0.4 mg/dL (0.0-1.1); Blood Urea Nitrogen 13 mg/dL (7-17); Calcium 9.8 mg/dL (8.4-10.2); Carbon Dioxide 26 mmol/L (22-32); Chloride 104 mmol/L (98-107); Estimated Glomerular Filt Rate > 60 mL/min (>60); Gamma Glutamyl Transpeptidase 15 U/L (12-43); Globulin 2.8 g/dL (1.7-4.1); Glucose 99 mg/dL (70-100); HEMOLYSIS < 15 (0-50); Magnesium 1.6 mg/dL (1.6-2.3); Potassium 4.5 mmol/L (3.4-5.1); Sodium 139 mmol/L (137-145); Total Protein 7.2 g/dL (6.3-8.2)
[2024-06-25 14:41] LABS: Free T4, Direct Thyroxine 0.99 ng/dL (0.78-2.19)
[2024-06-25 14:55] LABS: Thyroid Stimulating Hormone 1.17 uIU/mL (0.47-4.68)
== END ==
PROVIDERS: PCP Family Medicine; Referring Provider Family Medicine; Visit Provider Family Medicine
DX: K21.9 Gastro-esophageal reflux disease without esophagitis (principal); K30 Functional dyspepsia
CPT/HCPCS: 36415; 80053; 80076; 82977; 83735; 84439; 84443; 85027

== ENCOUNTER → 2024-10-04 10:21 | Outpatient (CLI) | payer BC, SELFPAY ==
[2023-04-04 09:42] VITALS: BMI 23.4
--- NOTE | 2024-10-04 10:22 | DI.RAD.S_ITS ---
PROCEDURE: FL BARIUM SWALLOW INDICATIONS: HX ESOPHAGEAL STRICTURE W/O TX/NOW DYSPHAGIA COMPARISON: None. FINDINGS: Function: Mild tertiary contractions are present. Spontaneous esophageal reflux is present only in the supine position up to the level of the aaron. Ingestion of a barium tablet revealed temporary stasis at the level of the midthoracic esophagus with mild associated mucosal thickening. Morphology: Air-contrast images demonstrate normal mucosal morphology. Single contrast views show no esophageal strictures, extrinsic mass effects, or diverticula. Limited images of the stomach demonstrate normal appearance. There is a minimal hiatal hernia. IMPRESSION: Spontaneous esophageal reflux in the supine position to the level of the aaron with possible, focal esophagitis at the midthoracic esophagus. The patient mentioned a history of duodenal ulcers and prior treatment for H pylori. Consider testing for recurrent infection. Dictated by: Jesús Nunez M.D. on 10/04/2024 at 15:13 Approved by: Jesús Nunez M.D. on 10/04/2024 at 15:17
== END ==
LOC: RAD 10:21
PROVIDERS: PCP Family Medicine; Referring Provider Family Medicine; Visit Provider Family Medicine
DX: K21.00 Gastro-esophageal reflux disease with esophagitis, without bleeding (principal); T50.905A Adverse effect of unspecified drugs, medicaments and biological substances, initial encounter
CPT/HCPCS: 74220

== ENCOUNTER → 2024-11-26 11:00 | Outpatient (CLI) | payer BC, SELFPAY ==
[2023-04-04 09:42] VITALS: BMI 23.4
[2024-11-27 13:36] LABS: Candida species Negative (Negative); Gardnerella vaginalis Positive (Negative); Trichomoas vaginalis Negative (Negative)
== END ==
PROVIDERS: PCP Family Medicine; Visit Provider Obstetrics & Gynecology
DX: N89.8 Other specified noninflammatory disorders of vagina (principal)
CPT/HCPCS: 87480; 87510; 87660

== ENCOUNTER → 2024-12-29 13:28 | Outpatient (CLI) | payer BC, SELFPAY ==
[2023-04-04 09:42] VITALS: BMI 23.4
--- NOTE | 2024-12-29 13:30 | DI.US.S_ITS ---
PROCEDURE: US PELVIC COMPLETE INDICATIONS: CRAMPING. HISTORY OF FIBROIDS. TECHNIQUE: Real-time scanning was performed of the pelvic organs, with image documentation. Additional endovaginal scanning was necessary due to incomplete visualization of the adnexal and endometrial structures by transabdominal scanning. COMPARISON: [facility], US, US PELVIC COMPLETE, 02/14/2023, 14:26. FINDINGS: Uterus: Uterus is anteverted and normal in size at 5.8 x 4.5 x 2.7 cm. The myometrium is heterogeneous. The endometrium measures 1.0 mm combined thickness. There is again seen a cervical mass with cystic and solid components measuring together 1.8 x 1.6 x 1.0 cm (previously 1.9 x 1.4 x 1.0 cm) with nonvascular solid component measuring 0.7 x 0.8 x 0.8 cm (previously 0.8 x 1.0 x 0.7 cm). Ovaries: The right ovary is not visualized. The left ovary measures 2.0 x 1.5 x 1.3 cm, with a calculated ovarian volume of 2.0 cc. The left ovary has a normal sonographic appearance. Less than 12 follicles can be seen in the left ovary. No adnexal masses are seen. Other: No pathologic free abdominal or pelvic fluid. IMPRESSION: Redemonstration of cervical mass containing solid and cystic components is stable since prior ultrasound 02/14/2023. Finding may represent degenerating fibroid. However malignancy cannot be excluded. Recommend follow-up imaging and/or biopsy as clinically indicated. Approved by: Kristal Evans M.D.,Ph.D. on 12/30/2024 at 6:00
== END ==
PROVIDERS: PCP Family Medicine; Referring Provider Obstetrics & Gynecology; Visit Provider Obstetrics & Gynecology
DX: D25.1 Intramural leiomyoma of uterus (principal); R10.2 Pelvic and perineal pain; N88.9 Noninflammatory disorder of cervix uteri, unspecified
CPT/HCPCS: 76830; 76856

== ENCOUNTER → 2025-03-11 14:54 | Outpatient (CLI) | payer BC, SELFPAY ==
[2023-04-04 09:42] VITALS: BMI 23.4
== END ==
PROVIDERS: PCP Family Medicine; Visit Provider Obstetrics & Gynecology
DX: N89.8 Other specified noninflammatory disorders of vagina (principal)
CPT/HCPCS: 87480; 87510; 87660

== ENCOUNTER → 2025-04-16 11:25 | Outpatient (CLI) | payer BC, SELFPAY ==
[2023-04-04 09:42] VITALS: BMI 23.4
--- NOTE | 2025-04-16 11:26 | DI.MG.S_ITS ---
MM screening mammo BI: 04/16/2025. BI-RADS: 2 CLINICAL: 59-year old female for bilateral screening mammogram. Tyrer-Cuzick lifetime risk of 12.5%. Current reported family history of breast cancer: mother. The patient had a prior right breast biopsy. PRIOR EXAMS 03/26/2024, 12/12/2020, 12/19/2018, 01/10/2017. MAMMOGRAPHY TECHNIQUE: 2D and 3D (tomosynthesis) digital mammographic views obtained, with additional images as needed for full coverage. Current study was also evaluated with a Computer Aided Detection (CAD) system. DENSITY C. The breasts are heterogeneously dense, which may obscure small masses. MAMMOGRAPHY FINDINGS Right: Surgical clip present on the right. Benign-appearing calcifications noted on the right. There are no suspicious masses, calcifications, or other findings in the breast. Left: Benign-appearing calcifications noted on the left. There are no suspicious masses, calcifications, or other findings in the breast. IMPRESSION: * No evidence of malignancy with benign findings. RECOMMENDATIONS Bilateral * Annual screening mammography. OVERALL ASSESSMENT CATEGORY BI-RADS-2: Benign. The [employer] recommends annual screening mammography beginning at age 40 for women with average risk of breast cancer. ELECTRONICALLY SIGNED: Jeff Cheema M.D. on 04/18/2025 at 07:30:32 AM PT Interpreting Station ID: [id number]
== END ==
PROVIDERS: PCP Internal Medicine; Referring Provider Family Medicine; Visit Provider Family Medicine
DX: Z12.31 Encounter for screening mammogram for malignant neoplasm of breast (principal); Z80.3 Family history of malignant neoplasm of breast; R92.333 Mammographic heterogeneous density, bilateral breasts
CPT/HCPCS: 77063; 77067

== ENCOUNTER → 2025-06-24 09:16 | Outpatient (CLI) | payer BC, SELFPAY ==
[2023-04-04 09:42] VITALS: BMI 23.4
--- NOTE | 2025-06-24 09:18 | DI.US.S_ITS ---
PROCEDURE: US ABDOMEN LIMITED INDICATIONS: RIGHT UPPER QUADRANT PAIN TECHNIQUE: Real-time scanning was performed of the abdominal and retroperitoneal organs, with image documentation. COMPARISON: None. FINDINGS: Liver: Liver is normal in size and homogeneous in echotexture. Gallbladder: No gallstones. No wall thickening. No pericholecystic edema. Negative sonographic Wilhelm's sign. Biliary ducts: Intrahepatic bile ducts are non-dilated. Extrahepatic bile duct caliber measures 6.5 mm. Normal is 6-7 mm or less in diameter, or 10 mm or less post-cholecystectomy. Pancreas: Visualized portions of the pancreas are sonographically normal. Miscellaneous: No free abdominal fluid. IMPRESSION: No findings to explain the patient's right upper quadrant pain. No gallstones. Normal echogenicity of the liver. Dictated by: Mateusz Ybarra M.D. on 06/24/2025 at 10:21 Approved by: Mateusz Ybarra M.D. on 06/24/2025 at 10:22
== END ==
LOC: US 09:17
PROVIDERS: PCP Internal Medicine; Referring Provider Internal Medicine; Visit Provider Internal Medicine
DX: R10.11 Right upper quadrant pain (principal)
CPT/HCPCS: 76705

== ENCOUNTER → 2025-06-24 09:44 | Outpatient (CLI) | payer BC, SELFPAY ==
[2023-04-04 09:42] VITALS: BMI 23.4
--- NOTE | 2025-06-24 09:47 | DI.RAD.S_ITS ---
PROCEDURE: XR KNEE RT 3V INDICATIONS: OSTEOARTHRITIS R KNEE TECHNIQUE: 3 views of the knee were acquired. COMPARISON: [facility], , XR KNEE RT 4V, 03/26/2024, 13:20. FINDINGS: Bones: No fractures or dislocations. Moderate medial and lateral tibiofemoral and mild to moderate patellofemoral compartment narrowing with associated osteophytosis. No suspicious bony lesions. Soft tissues: No joint effusion. No suspicious soft tissue calcifications. IMPRESSION: KL grade 2 tricompartmental osteoarthritis without evidence of acute bony abnormality or significant effusion. Dictated by: Jesús Boateng M.D. on 06/25/2025 at 3:20 Approved by: Jesús Boateng M.D. on 06/25/2025 at 3:21
== END ==
PROVIDERS: PCP Internal Medicine; Referring Provider Internal Medicine; Visit Provider Internal Medicine
DX: M17.11 Unilateral primary osteoarthritis, right knee (principal)
CPT/HCPCS: 73562; 76705